=== PATIENT | male | born 1990 | race Caucasian/White ===

== ENCOUNTER 2022-12-30 12:54 | Outpatient (RCR) | payer SELFPAY | END 2022-12-31 13:50 | disposition home or self-care (01) | LOC: PT 12:54 | PROVIDERS: PCP Family Medicine; Visit Provider Family Medicine | DX: M54.50 Low back pain, unspecified (principal); R29.3 Abnormal posture | CPT/HCPCS: 97110; 97161 ==

== ENCOUNTER 2023-04-05 20:49 | Emergency (ER) | payer BC, SELFPAY ==
[2023-04-05 21:03] VITALS: BP 171/107; PULSE 78; RESP 18; TEMP 36.6; O2SAT 97; BMI 31.7
--- NOTE | 2023-04-05 21:36 | ED.DENTAL1 ---
HPI - Dental/Oral General Chief complaint: Dental/Oral Stated complaint: DENTAL PAIN Time Seen by Provider: 04/05/23 21:20 Source: patient Mode of arrival: walk-in History of Present Illness HPI Narrative: patient is a 32-year-old male who presents to the emergency Department for pain in the right mandible associated with multiple dental caries. He reports a history of recurrent issues with the teeth. He does not currently have a dentist that he can follow-up with. He states in the last several days he has had an increase in pain, drainage and swelling to the right mandible, he has not had any difficulty swallowing or speaking. He has been using ibuprofen for pain. No fevers or vomiting. He is regular smoker. Related Data Home Medications Medication Instructions Recorded Confirmed ibuprofen 800 mg tablet mg 04/05/23 Previous Rx's Medication Instructions Recorded clindamycin HCl 150 mg capsule 300 mg PO Q6H 10 days #80 caps 04/05/23 hydrocodone 5 mg-acetaminophen 325 1 tab PO Q6H PRN pain #12 tabs 04/05/23 mg tablet ondansetron 4 mg disintegrating 4 mg PO Q6H PRN nausea and 04/05/23 tablet vomiting #12 tabs Allergies Allergy/AdvReac Type Severity Reaction Status Date / Time No Known Drug Allergies Allergy Verified 04/05/23 21:12 Review of Systems ROS Constitutional Denies: fever or chills Ears, nose, mouth, and throat Denies: throat pain or nasal discharge Respiratory Denies: shortness of breath or cough Gastrointestinal Denies: nausea or vomiting Musculoskeletal Denies: back pain Integumentary/Breast Denies: rash Neurological Reports: headache Hematologic/Lymphatic Denies: easy bruising Allergic/Immunologic Denies: hives PFSH PFSH Social History Smoking status: Current every day smoker Exam Narrative Exam Narrative: Gen.: Awake, alert, in no distress Head: Normocephalic, atraumatic ENT: Moist mucous membranes; bilateral tympanic membranes clear; mild edema noted over the right mandible, no redness or swelling under the tongue. Airway widely open and patent. No trismus or drooling. Clear speech. Multiple dental caries noted with diffuse tenderness of tooth #28 and tooth #29, no active drainage from the tooth. Respiratory: No respiratory distress Extremities: Moves extremities equally Psych: Normal mood and affect Neuro: No focal neuro deficit Skin: Warm, dry, intact Constitutional Vital Signs, click to edit/add: Last Vital Signs Temp 97.9 F 04/05/23 21:03 Pulse 78 04/05/23 21:03 Resp 18 04/05/23 21:03 BP 171/107 H 04/05/23 21:03 Pulse Ox 97 04/05/23 21:03 O2 Del Method Room Air 04/05/23 21:03 Course Vital Signs Vital signs: Vital Signs Temperature 97.9 F 04/05/23 21:03 Pulse Rate 78 04/05/23 21:03 Respiratory Rate 18 04/05/23 21:03 Blood Pressure 171/107 H 04/05/23 21:03 Pulse Oximetry 97 04/05/23 21:03 Oxygen Delivery Method Room Air 04/05/23 21:03 Temperature 97.9 F 04/05/23 21:03 Pulse Rate 78 04/05/23 21:03 Respiratory Rate 18 04/05/23 21:03 Blood Pressure 171/107 H 04/05/23 21:03 Pulse Oximetry 97 04/05/23 21:03 Oxygen Delivery Method Room Air 04/05/23 21:03 MDM - Dental/Oral MDM Narrative Medical decision making narrative: exam is consistent with early dental abscess of the right mandible, patient with no significant facial swelling, stable vital signs. He is medicated for pain with oral and topical analgesia. Started on clindamycin. He strongly encouraged to finish the whole course of antibiotics, follow up with a dentist and return to the Emergency Room if symptoms change or worsen. Medical Records Attestation: I reviewed the patient's medical records. Discharge Plan Discharge Chief Complaint: Dental/Oral Clinical Impression: Dental caries, Toothache Patient Disposition: Home, Self-Care Time of Disposition Decision: 21:34 Condition: Good Prescriptions / Home Meds: New hydrocodone-acetaminophen 5-325 mg tablet 1 tab PO Q6H PRN (Reason: pain) Qty: 12 0RF Rx Instructions: DX: K08.89 clindamycin HCl 150 mg capsule 300 mg PO Q6H 10 Days Qty: 80 0RF ondansetron 4 mg tablet,disintegrating 4 mg PO Q6H PRN (Reason: nausea and vomiting) Qty: 12 0RF No Action ibuprofen 800 mg tablet Instructions: Dental Abscess (ED), Toothache (ED) Stand Alone Forms: Portal Instructions Referrals: Francie Chaudhary MD [Primary Care Provider] - 1 week Discharge Date/Time: 04/05/23 22:01
[2023-04-05] MEDS: BENZOCAINE 30 ML, lidocaine HCL 15 ML MM (21:52)
[2023-04-05] MEDS: CLINDAMYCIN HCL 150 MG CAPSULE 450 MG PO (21:52)
[2023-04-05] MEDS: ONDANSETRON 4 MG RAPDIS TABLET SL (21:52)
== END 2023-04-05 22:01 | disposition home or self-care (01) ==
PROVIDERS: Emergency Provider Internal Medicine; PCP Family Medicine
DX: K02.9 Dental caries, unspecified (principal); K08.89 Other specified disorders of teeth and supporting structures; F17.210 Nicotine dependence, cigarettes, uncomplicated
CPT/HCPCS: 99284

== ENCOUNTER 2023-06-24 09:19 | Emergency (ER) | payer BC, SELFPAY ==
[2023-06-24 09:26] VITALS: BP 126/88; PULSE 76; RESP 18; TEMP 36.6; O2SAT 98; BMI 30.3
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
[2023-06-24] MEDS: IBUPROFEN 400 MG TABLET 800 MG PO (09:48)
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
== END 2023-06-24 10:27 | disposition home or self-care (01) ==
PROVIDERS: Emergency Provider Emergency Medicine; PCP Family Medicine
DX: S63.602A Unspecified sprain of left thumb, initial encounter (principal); V43.52XA Car driver injured in collision with other type car in traffic accident, initial encounter; F17.210 Nicotine dependence, cigarettes, uncomplicated
CPT/HCPCS: 73130; 99283